=== PATIENT | male | born 1945 | race Caucasian/White ===

== ENCOUNTER → 2017-01-08 | Outpatient (CLI) | payer MEDICARE, BC ==
[~2017-01-08] MED LIST: ADVIL200 MG PO; ALDACTONE 25MG25 M1 PO; ALEVE220 MG PO; ASPIRIN E.C. 8181 MG PO; CEPHALEXIN500 M1 PO; COREG12.5 MG PO; FOLPLEX 2.2 0.51 TAB PO; FOLPLEX PO; HCTZ 25MG25 MG PO; LISINOPRIL10 MG PO; PRAVACHOL 40MG40 MG PO; PROTONIX 40MG T40 MG PO; TYLENOL 325MG325 MG PO; ZESTRIL 20MG TA20 MG PO; ZESTRIL40 MG PO
== END ==
LOC: COL.RAD 08:42
DX: S42.032A Displaced fracture of lateral end of left clavicle, initial encounter for closed fracture (principal); S43.102A Unspecified dislocation of left acromioclavicular joint, initial encounter; M75.82 Other shoulder lesions, left shoulder; M19.012 Primary osteoarthritis, left shoulder

== ENCOUNTER 2021-02-02 07:13 | Day surgery (SDC) | payer MEDICARE, BC ==
[2021-02-02] VITALS (9 sets, daily range): BP systolic 112–181; BP diastolic 51–95; PULSE 59–88; TEMP 98.1
[~2021-02-02] VITALS: Ht 183 cm; Wt 81.9 kg
[2021-02-02 08:11] LABS: HEMATOCRIT 40.6 % (42.0-52.0); MEAN CELL VOLUME 93 fl (80.0-100.0); MEAN CORPUSCULAR HEMOGLOBIN 32 pg (27.0-31.0); MEAN CORPUSCULAR HGB CONC 35 g/dl (33.0-37.0); MEAN PLATELET VOLUME 9.1 fl (7.4-10.4); PLATELET COUNT 129 K/mm3 (130-400); RED BLOOD COUNT 4.36 M/mm3 (4.20-5.60); REDCELL DISTRIBUTION WIDTH-CV 11.9 % (11.5-14.5)
[2021-02-02 08:23] LABS: INR 1.1 (0.8-3.0); PROTHROMBIN TIME 11.8 SECONDS (9.7-12.8)
[2021-02-02 08:26] LABS: CALCIUM 9.8 mg/dL (8.4-10.2); CREATININE, serum 1.17 (0.66-1.25); POTASSIUM 4.7 mmol/L (3.4-5.0)
[2021-02-02] MEDS ORDERED: FOSAMAX 70MG TA70 MG PO (08:29)
[2021-02-02] MEDS ORDERED: D3-5050000 IU PO (08:29)
[2021-02-02] MEDS ORDERED: TOPAMAX50 MG PO (08:30)
[2021-02-02] MEDS ORDERED: PACERONE100 MG PO (08:30)
[2021-02-02] MEDS ORDERED: COZAAR 50MG50 MG/TAB PO (08:31)
[2021-02-02] MEDS ORDERED: ZEBETA 5MG5 MG PO (08:31)
[2021-02-02 08:34] LABS: PARTIAL THROMBOPLASTIN TIME 29.5 SECONDS (26.0-37.0)
[2021-02-02] MEDS ORDERED: TIAZAC120 MG PO (13:50)
[2021-02-02] MEDS ORDERED: XOPENEX HF0.045 MG/A IH (13:51)
== END 2021-02-02 14:30 | disposition home or self-care (01) ==
LOC: COL.CAR 07:13 → EDBD 07:30 → COL.CAR 07:30
PROVIDERS: Internal Medicine Cardiovascular Disease
DX: I25.110 Atherosclerotic heart disease of native coronary artery with unstable angina pectoris (principal); I48.0 Paroxysmal atrial fibrillation; I99.8 Other disorder of circulatory system; I10 Essential (primary) hypertension; R94.39 Abnormal result of other cardiovascular function study; E78.00 Pure hypercholesterolemia, unspecified; Z95.0 Presence of cardiac pacemaker
CPT/HCPCS: C1769; C1887; J1644; J2250; J3010; Q9967